=== PATIENT | female | born 1950 | race Caucasian/White ===

== ENCOUNTER 2016-09-11 18:25 | Inpatient (IN) | payer MEDICARE ==
[2016-09-11 18:36] VITALS: BMI 29.2
[2016-09-11] MEDS ORDERED: NS 1,000 ML IV ONE (18:56)
[2016-09-11 19:09] LABS: ABG Draw Site Right Brachial; ALLEN'S TEST PASS; BEb 2.3 (+/- 2); TCO2 27.7 MMOL/L (23-27)
--- NOTE | 2016-09-11 19:10 | DIRPT ---
CLINICAL DATA: Chest pain, productive cough. EXAM: PORTABLE CHEST 1 VIEW COMPARISON: June 20, 2015. FINDINGS: The heart size and mediastinal contours are within normal limits. Both lungs are clear. No pneumothorax or pleural effusion is noted. The visualized skeletal structures are unremarkable. IMPRESSION: No acute cardiopulmonary abnormality seen. Electronically Signed By: Reji Rosales Jr, M.D. On: 09/11/2016 19:08
[2016-09-11 19:13] LABS: AUTOMATED BASOPHIL 1.2 % (0-2); AUTOMATED EOSINOPHIL 4.7 % (0-5); AUTOMATED LYMPH 30.1 % (17-44); AUTOMATED MONOCYTE 8.1 % (3-10); AUTOMATED NEUTROPHIL 55.9 % (45-76); MPV 10.3 fL (7.4-10.4)
[2016-09-11 19:23] LABS: BLOOD UREA NITROGEN 24 MG/DL (7-17); CALCIUM 9.7 MG/DL (8.4-10.2); CALCULATED OSMOLALITY 277 MOs/Kg (270-290); CHLORIDE 105 mEq/L (98-107); GLUCOSE 93 mg/dL (70-99); SODIUM LEVEL 142 mEq/L (137-146); TOTAL PROTEIN 8.1 G/DL (6.3-8.2)
[2016-09-11 19:27] LABS: PARTIAL THROMB. TIME 22.9 SEC (22-35)
--- NOTE | 2016-09-11 19:38 | EDPRACDOC ---
- General Information Information Source: Patient Mode of Arrival: Car - History of Present Illness Onset: 1 WEEK HPI: PT PRESENTS WITH SUBSTERNAL CHEST PAIN THAT SHE STATES BEGAN SEVERAL DAYS AGO. STATES SHE HAS HAD A NON-PRODUCTIVE COUGH. DENIES RADIATION OF THE PAIN, NAUSEA , VOMITING, DIAPHORESIS OR SHOB. PT HAS NO PMH OF DIABETES, HTN, OR HYPERLIPIDEMIA. NO FAMILY CARDIAC HISTORY Chest Pain Location: Reports: Substernal Pain Radiation: Reports: None Symptoms Occur: Reports: Gradually Cardiac Risk Factors: Reports: None Cardiac History of: Reports: None PE Risk Factors: Reports: None Medications within 24 Hours: Reports: None Prehospital Care: Reports: None Pain Came On: Reports: Gradually Pain Status: Present Now Pain Description: Reports: Pressure, Tightness Pain Severity: Mild Pain Worsens With: Reports: Nothing Pain Improves With: Reports: Nothing Associated Signs and Symptoms: Reports: None <Christal Reeder - Last Filed: 09/11/16 21:33> <Celine Patel - Last Filed: 09/11/16 23:02> - General Information Chief Complaint: Chest Pain Stated Complaint: LOW HEART RATE CP SENT BY DOCTOR'S OFFICE Time Seen by Provider: 09/11/16 18:45 Home Medications: Home Medications Bimatoprost [Lumigan] 1 drop OU QHS 09/11/16 Brimonidine 0.2%/Timolol 0.5% [Combigan] 1 drops OU BID 09/11/16 Dorzolamide HCl [Trusopt] 1 drop OS QHS 09/11/16 Guaifenesin [Mucinex] 600 mg PO BID 09/11/16 Lansoprazole [Prevacid] 30 mg PO BID 09/11/16 Valacyclovir HCl [Valtrex] 500 mg PO DAILY PRN 09/11/16 Allergies/Adverse Reactions: Allergies Allergy/AdvReac Type Severity Reaction Status Date / Time levofloxacin [From Levaquin] Allergy Hives* Verified 09/11/16 18:36 Sulfa (Sulfonamide Allergy Unknown/See Verified 09/11/16 18:36 Antibiotics) Comments [Sulfa(Sulfonamide Antibiotics)] ED Past Medical History - History Reviewed Yes Nurses notes reviewed and agree except as marked - Patient Medical History Psychological History: Denies: Depression - Social Medical History Smoking Status: Former smoker <Christal Reedre - Last Filed: 09/11/16 21:33> EDM Review of Systems - Review of Systems ROS Negative Except as Marked: Yes All systems reviewed and were negative except as marked <Christal Reeder - Last Filed: 09/11/16 21:33> - Physical Exam Constitutional: Alert Oriented to: Time, Person, Place Last recorded Vital Signs: Last Vital Signs Temp 98.4 F 09/11/16 18:31 Pulse 52 L 09/11/16 19:08 Resp 18 09/11/16 18:50 BP 163/72 09/11/16 18:50 Pulse Ox 96 09/11/16 18:50 Oxygen Pulse Oxygen Saturation 96 O2 Device Oxygen Flow Rate Fraction of Inspired Oxygen ( FIO2) - HEENT Head: Normal ( normocephalic) Eye Exam: Normal (PERRL, EOMI, Sclera white) Oropharynx: Normal (Pharynx:Moist without exudate,Gums-no swelling) Tympanic Membrane: Normal Nose: No Symptoms Reported (septum midline) Neck: Normal (FROM, trachea at midline) - Respiratory/Cardiovascular Respiratory: Normal - CTA (BBS clear to auscultation without adventitious sounds ) Cardiovascular: Normal (RRR without murmur, gallop or rub) - GI Auscultation: Normal (NABS) Palpation: Normal (Soft,No rebound or guarding, non distended) Tenderness: Non tender Cooper's Sign: Negative Rectal Exam: Deferred - Musculoskeletal Back: Normal (Non-Tender) Extremities: Normal (Normal tone, Pulses 2+ No cyanosis or edema, FROM) - Integumentary Skin: Normal, Warm, Dry Lymphatics: Normal (no adenopathy) - Neurologic Memory Impaired: Normal Motor Function: Normal (Normal tone, Pulses 2+ No cyanosis or edema, FROM) Cranial Nerve: Normal (CN II-X11 intact sensation, strength 5/5) Cerebellar: Normal Mood Description: Normal Perception: Normal <Christal Reeder - Last Filed: 09/11/16 21:33> - Physical Exam Last recorded Vital Signs: Last Vital Signs Temp 98.4 F 09/11/16 18:31 Pulse 49 L 09/11/16 22:21 Resp 18 09/11/16 22:21 BP 151/65 09/11/16 22:21 Pulse Ox 95 09/11/16 22:21 Oxygen Pulse Oxygen Saturation 95 O2 Device Oxygen Flow Rate Fraction of Inspired Oxygen ( FIO2) <Celine Patel N - Last Filed: 09/11/16 23:02> ED Chest Pain Exam - Respiratory/Cardiovascular Respiratory: Normal - CTA Cardiovascular/Chest: Normal Radial Pulse: Normal Femoral Pulse: Normal Pedal Pulse: Normal Carotid Arteries: Normal Edema: negative: 1+, 2+, 3+, 4+, 5, 6 Chest Palpation: Normal <Christal Reeder - Last Filed: 09/11/16 21:33> - Differential Diagnosis Costochondritis, Pneumonia - Action Patient received Aspirin within last 24 hours?: No ASA given in the ED: No Patient received Beta Marcellus within last 24hrs: No - Re-evaluation Re-evaluation 1 Re-evaluation Time: 21:31 (PT STATING SHE IS HAVING A LITTLE MORE SUBSTERNAL CHEST PAIN. NOT HORRIBLE. CONTINUES TO DENY NAUSEA, VOMITING. DISCUSSED WITH DR PATEL, PT TO BE ADMITTED. ) - Results All Results Reviewed and Normal except as Highlighted below: Yes 09/11/16 19:01 09/11/16 19:01 WBC 7.8 xk/uL (3.8-10.8) 09/11/16 19:01 RBC 4.95 xM/uL (4.20-5.40) 09/11/16 19:01 Hgb 13.2 g/dL (12.0-16.0) 09/11/16 19:01 Hct 40.4 % (36-47) 09/11/16 19:01 MCV 82 fL (81-99) 09/11/16 19:01 MCH 26.7 pg (27-32) L 09/11/16 19:01 MCHC 32.7 g/dl (33-36) L 09/11/16 19:01 RDW 13.4 % (11.5-14.5) 09/11/16 19:01 Plt Count 206 xk/uL (130-400) 09/11/16 19:01 MPV 10.3 fL (7.4-10.4) 09/11/16 19:01 Neut % (Auto) 55.9 % (45-76) 09/11/16 19:01 Lymph % (Auto) 30.1 % (17-44) 09/11/16 19:01 [place] % (Auto) 8.1 % (3-10) 09/11/16 19:01 Eos % (Auto) 4.7 % (0-5) 09/11/16 19:01 Baso % (Auto) 1.2 % (0-2) 09/11/16 19:01 Absolute Neuts (auto) 4.29 xk/uL (1.7-8.2) 09/11/16 19:01 Absolute Lymphs (auto) 2.34 xk/uL (0.65-4.75) 09/11/16 19:01 Puncture Site Right brachial 09/11/16 19:05 pH 7.440 pH UNITS (7.35-7.45) 09/11/16 19:05 pCO2 39.0 mmHg (35-45) 09/11/16 19:05 pO2 65.0 mmHg (80-100) L 09/11/16 19:05 HCO3 26.5 MMOL/L (22-26) H 09/11/16 19:05 Total CO2 27.7 MMOL/L (23-27) H 09/11/16 19:05 Base Excess 2.3 (+/- 2) H 09/11/16 19:05 FiO2 % 21 09/11/16 19:05 Specimen Drawn By Kaytr 09/11/16 19:05 Sodium 142 mEq/L (137-146) 09/11/16 19:01 Potassium 3.8 mEq/L (3.5-5.1) 09/11/16 19:01 Chloride 105 mEq/L (98-107) 09/11/16 19:01 Carbon Dioxide 29 mMOL/L (22-33) 09/11/16 19:01 Anion Gap 12 mEq/L (8-16) 09/11/16 19:01 BUN 24 MG/DL (7-17) H 09/11/16 19:01 Creatinine 1.00 MG/DL (0.52-1.04) 09/11/16 19:01 Estimated GFR (MDRD) 55 mL/min (>=60) L 09/11/16 19:01 Glucose 93 mg/dL (70-99) 09/11/16 19:01 Calculated Osmolality 277 MOs/Kg (270-290) 09/11/16 19:01 Calcium 9.7 MG/DL (8.4-10.2) 09/11/16 19:01 Total Bilirubin 0.5 MG/DL (0.2-1.3) 09/11/16 19:01 AST 33 IU/L (14-36) 09/11/16 19:01 ALT 23 IU/L (9-52) 09/11/16 19:01 Alkaline Phosphatase 113 IU/L (55-165) 09/11/16 19:01 Total Protein 8.1 G/DL (6.3-8.2) 09/11/16 19:01 Albumin 4.3 G/DL (3.5-5.0) 09/11/16 19:01 Lab Results 09/11/16 09/11/16 09/11/16 19:05 19:01 19:01 WBC 7.8 RBC 4.95 Hgb 13.2 Hct 40.4 MCV 82 MCH 26.7 L MCHC 32.7 L RDW 13.4 Plt Count 206 MPV 10.3 Neut % (Auto) 55.9 Lymph % (Auto) 30.1 [place] % (Auto) 8.1 Eos % (Auto) 4.7 Baso % (Auto) 1.2 Absolute Neuts (auto) 4.29 Absolute Lymphs (auto) 2.34 Puncture Site Right brachial pH 7.440 pCO2 39.0 pO2 65.0 L HCO3 26.5 H Total CO2 27.7 H Base Excess 2.3 H FiO2 % 21 Specimen Drawn By Kaytr Sodium 142 Potassium 3.8 Chloride 105 Carbon Dioxide 29 Anion Gap 12 BUN 24 H Creatinine 1.00 Estimated GFR (MDRD) 55 L Glucose 93 Calculated Osmolality 277 Calcium 9.7 Total Bilirubin 0.5 AST 33 ALT 23 Alkaline Phosphatase 113 Total Protein 8.1 Albumin 4.3 Laboratory Results - last 24 hr 09/11/16 09/11/16 09/11/16 19:01 19:01 19:05 WBC 7.8 RBC 4.95 Hgb 13.2 Hct 40.4 MCV 82 MCH 26.7 L MCHC 32.7 L RDW 13.4 Plt Count 206 MPV 10.3 Neut % (Auto) 55.9 Lymph % (Auto) 30.1 [place] % (Auto) 8.1 Eos % (Auto) 4.7 Baso % (Auto) 1.2 Absolute Neuts (auto) 4.29 Absolute Lymphs (auto) 2.34 Puncture Site Right brachial pH 7.440 pCO2 39.0 pO2 65.0 L HCO3 26.5 H Total CO2 27.7 H Base Excess 2.3 H FiO2 % 21 Specimen Drawn By Kaytr Sodium 142 Potassium 3.8 Chloride 105 Carbon Dioxide 29 Anion Gap 12 BUN 24 H Creatinine 1.00 Estimated GFR (MDRD) 55 L Glucose 93 Calculated Osmolality 277 Calcium 9.7 Total Bilirubin 0.5 AST 33 ALT 23 Alkaline Phosphatase 113 Total Protein 8.1 Albumin 4.3 Laboratory Results 09/11/16 19:01 09/11/16 19:01 - EKG EKG #1 EKG Time: 18:41 -: Yes EKG interpreted by me Rate: bpm: 51 [place]: Normal Rhythm: SB Block: None Hypertrophy: None ST: Normal EKG #2 EKG Time: 21:29 -: Yes EKG interpreted by me Rate: bpm: 63 [place]: Normal Rhythm: NSR Block: None Hypertrophy: None ST: Normal <Christal Reeder - Last Filed: 09/11/16 21:33> - Results 09/11/16 19:01 09/11/16 19:01 WBC 7.8 xk/uL (3.8-10.8) 09/11/16 19:01 RBC 4.95 xM/uL (4.20-5.40) 09/11/16 19:01 Hgb 13.2 g/dL (12.0-16.0) 09/11/16 19:01 Hct 40.4 % (36-47) 09/11/16 19:01 MCV 82 fL (81-99) 09/11/16 19:01 MCH 26.7 pg (27-32) L 09/11/16 19:01 MCHC 32.7 g/dl (33-36) L 09/11/16 19:01 RDW 13.4 % (11.5-14.5) 09/11/16 19:01 Plt Count 206 xk/uL (130-400) 09/11/16 19:01 MPV 10.3 fL (7.4-10.4) 09/11/16 19:01 Neut % (Auto) 55.9 % (45-76) 09/11/16 19:01 Lymph % (Auto) 30.1 % (17-44) 09/11/16 19:01 [place] % (Auto) 8.1 % (3-10) 09/11/16 19:01 Eos % (Auto) 4.7 % (0-5) 09/11/16 19:01 Baso % (Auto) 1.2 % (0-2) 09/11/16 19:01 Absolute Neuts (auto) 4.29 xk/uL (1.7-8.2) 09/11/16 19:01 Absolute Lymphs (auto) 2.34 xk/uL (0.65-4.75) 09/11/16 19:01 PT 10.7 SEC (9.2-11.2) 09/11/16 19: INR 1.0 09/11/16 19:01 APTT 22.9 SEC (22-35) 09/11/16 19:01 D-Dimer Quant (PE/DVT) 549 ng/mL (<500) H 09/11/16 19:01 Puncture Site Right brachial 09/11/16 19:05 pH 7.440 pH UNITS (7.35-7.45) 09/11/16 19:05 pCO2 39.0 mmHg (35-45) 09/11/16 19:05 pO2 65.0 mmHg (80-100) L 09/11/16 19:05 HCO3 26.5 MMOL/L (22-26) H 09/11/16 19:05 Total CO2 27.7 MMOL/L (23-27) H 09/11/16 19:05 Base Excess 2.3 (+/- 2) H 09/11/16 19:05 FiO2 % 21 09/11/16 19:05 Specimen Drawn By Kaytr 09/11/16 19:05 Sodium 142 mEq/L (137-146) 09/11/16 19:01 Potassium 3.8 mEq/L (3.5-5.1) 09/11/16 19:01 Chloride 105 mEq/L (98-107) 09/11/16 19:01 Carbon Dioxide 29 mMOL/L (22-33) 09/11/16 19:01 Anion Gap 12 mEq/L (8-16) 09/11/16 19:01 BUN 24 MG/DL (7-17) H 09/11/16 19:01 Creatinine 1.00 MG/DL (0.52-1.04) 09/11/16 19:01 Estimated GFR (MDRD) 55 mL/min (>=60) L 09/11/16 19:01 Glucose 93 mg/dL (70-99) 09/11/16 19:01 Calculated Osmolality 277 MOs/Kg (270-290) 09/11/16 19:01 Calcium 9.7 MG/DL (8.4-10.2) 09/11/16 19:01 Total Bilirubin 0.5 MG/DL (0.2-1.3) 09/11/16 19:01 AST 33 IU/L (14-36) 09/11/16 19:01 ALT 23 IU/L (9-52) 09/11/16 19:01 Alkaline Phosphatase 113 IU/L (55-165) 09/11/16 19:01 Troponin I < 0.01 ng/mL (<.04) 09/11/16 19:01 Rpc-A-Bcaiaxecqvt Pept 59 pg/mL (0-900) 09/11/16 19:01 Total Protein 8.1 G/DL (6.3-8.2) 09/11/16 19:01 Albumin 4.3 G/DL (3.5-5.0) 09/11/16 19:01 Lab Results 09/11/16 09/11/16 09/11/16 19:05 19:01 19:01 WBC RBC Hgb Hct MCV MCH MCHC RDW Plt Count MPV Neut % (Auto) Lymph % (Auto) [place] % (Auto) Eos % (Auto) Baso % (Auto) Absolute Neuts (auto) Absolute Lymphs (auto) PT 10.7 INR 1.0 APTT 22.9 D-Dimer Quant (PE/DVT) 549 H Puncture Site Right brachial pH 7.440 pCO2 39.0 pO2 65.0 L HCO3 26.5 H Total CO2 27.7 H Base Excess 2.3 H FiO2 % 21 Specimen Drawn By Kaytr Sodium Potassium Chloride Carbon Dioxide Anion Gap BUN Creatinine Estimated GFR (MDRD) Glucose Calculated Osmolality Calcium Total Bilirubin AST ALT Alkaline Phosphatase Troponin I Qgp-K-Qxliofyxyge Pept Total Protein Albumin 09/11/16 09/11/16 19:01 19:01 WBC 7.8 RBC 4.95 Hgb 13.2 Hct 40.4 MCV 82 MCH 26.7 L MCHC 32.7 L RDW 13.4 Plt Count 206 MPV 10.3 Neut % (Auto) 55.9 Lymph % (Auto) 30.1 [place] % (Auto) 8.1 Eos % (Auto) 4.7 Baso % (Auto) 1.2 Absolute Neuts (auto) 4.29 Absolute Lymphs (auto) 2.34 PT INR APTT D-Dimer Quant (PE/DVT) Puncture Site pH pCO2 pO2 HCO3 Total CO2 Base Excess FiO2 % Specimen Drawn By Sodium 142 Potassium 3.8 Chloride 105 Carbon Dioxide 29 Anion Gap 12 BUN 24 H Creatinine 1.00 Estimated GFR (MDRD) 55 L Glucose 93 Calculated Osmolality 277 Calcium 9.7 Total Bilirubin 0.5 AST 33 ALT 23 Alkaline Phosphatase 113 Troponin I < 0.01 Gsi-Z-Eiphnufwyzo Pept 59 Total Protein 8.1 Albumin 4.3 Laboratory Results - last 24 hr 09/11/16 09/11/16 09/11/16 19:01 19:01 19:01 WBC 7.8 RBC 4.95 Hgb 13.2 Hct 40.4 MCV 82 MCH 26.7 L MCHC 32.7 L RDW 13.4 Plt Count 206 MPV 10.3 Neut % (Auto) 55.9 Lymph % (Auto) 30.1 [place] % (Auto) 8.1 Eos % (Auto) 4.7 Baso % (Auto) 1.2 Absolute Neuts (auto) 4.29 Absolute Lymphs (auto) 2.34 PT 10.7 INR 1.0 APTT 22.9 D-Dimer Quant (PE/DVT) Puncture Site pH pCO2 pO2 HCO3 Total CO2 Base Excess FiO2 % Specimen Drawn By Sodium 142 Potassium 3.8 Chloride 105 Carbon Dioxide 29 Anion Gap 12 BUN 24 H Creatinine 1.00 Estimated GFR (MDRD) 55 L Glucose 93 Calculated Osmolality 277 Calcium 9.7 Total Bilirubin 0.5 AST 33 ALT 23 Alkaline Phosphatase 113 Troponin I < 0.01 Dep-P-Uhvsqekxhgm Pept 59 Total Protein 8.1 Albumin 4.3 09/11/16 09/11/16 19:01 19:05 WBC RBC Hgb Hct MCV MCH MCHC RDW Plt Count MPV Neut % (Auto) Lymph % (Auto) [place] % (Auto) Eos % (Auto) Baso % (Auto) Absolute Neuts (auto) Absolute Lymphs (auto) PT INR APTT D-Dimer Quant (PE/DVT) 549 H Puncture Site Right brachial pH 7.440 pCO2 39.0 pO2 65.0 L HCO3 26.5 H Total CO2 27.7 H Base Excess 2.3 H FiO2 % 21 Specimen Drawn By Kaytr Sodium Potassium Chloride Carbon Dioxide Anion Gap BUN Creatinine Estimated GFR (MDRD) Glucose Calculated Osmolality Calcium Total Bilirubin AST ALT Alkaline Phosphatase Troponin I Rsb-R-Ihzdpaaycuq Pept Total Protein Albumin Laboratory Results 09/11/16 19:01 09/11/16 19:01 - Additional Information COMPONENT OF DYSPNEA ON EXERTION / CP WITH EXERTION OVER THE PAST WEEK. WHILE CARDIAC RISK FACTORS ARE LOW, EKG AND TROPS WNL, THE HISTORY IS CONCERNING. <Celine Patel - Last Filed: 09/11/16 23:02> - Departure Disposition: Admit IP To This Hospital Education/Counseling Given To: Patient Education/Counseling Given Regarding: Diagnosis, Treatment, Prognosis, Follow Up <Christal Reeder - Last Filed: 09/11/16 21:33> - Physician Consulted Hospitalist Time Called: 22:47 Provider Called: iKel Rangel <Celine Patel - Last Filed: 09/11/16 23:02> - Departure Condition: Stable Final Diagnosis: ACS (acute coronary syndrome) Chest pain Qualifiers: Chest pain type: unspecified Qualified Code(s): R07.9 - Chest pain, unspecified Instructions: Chest Pain (ED), Chest Wall Pain (ED) Referrals: Wanda Everett MD [Primary Care Provider] - One Week Prescriptions: No Action Guaifenesin [Mucinex] 600 mg PO BID Dorzolamide HCl [Trusopt] 1 drop OS QHS Brimonidine 0.2%/Timolol 0.5% [Combigan] 1 drops OU BID Valacyclovir HCl [Valtrex] 500 mg PO DAILY PRN PRN Reason: FEVER BLISTER Lansoprazole [Prevacid] 30 mg PO BID Bimatoprost [Lumigan] 1 drop OU QHS
[2016-09-11] MEDS ORDERED: Pharmacy Review for Metformin - IV Contrast Given SCH (21:00)
--- NOTE | 2016-09-11 21:17 | DIRPT ---
CLINICAL DATA: Chest pain and cough for 1 week. Elevated D-dimer. Bradycardia. EXAM: CT ANGIOGRAPHY CHEST WITH CONTRAST TECHNIQUE: Multidetector CT imaging of the chest was performed using the standard protocol during bolus administration of intravenous contrast. Multiplanar CT image reconstructions and MIPs were obtained to evaluate the vascular anatomy. CONTRAST: 70 mL Isovue 370 IV COMPARISON: Chest radiograph earlier this day. Chest CT 07/22/2012 FINDINGS: There are no filling defects within the pulmonary arteries to suggest pulmonary embolus. Normal caliber thoracic aorta with minimal atherosclerosis. No aneurysm or dissection. Left vertebral artery arises directly from the aortic arch, a normal variant. Heart is normal in size. No mediastinal or hilar adenopathy. A 2 cm ovoid simple fluid density structure in the right infrahilar region is unchanged from prior exam, benign based on stability for 4 years. Clear lungs. No consolidation, nodule or mass. No pulmonary edema. Minimal fissural thickening involving the interlobar fissure on the left. No acute abnormality in the included upper abdomen. There are no acute or suspicious osseous abnormalities. Review of the MIP images confirms the above findings. IMPRESSION: No pulmonary embolus or acute intrathoracic process. Electronically Signed By: Naida Gibbs M.D. On: 09/11/2016 21:15
[2016-09-11] MEDS ORDERED: Enoxaparin 1 mg per kg per dose SQ ONE (21:25)
[2016-09-11] MEDS ORDERED: ASPIRIN 325 MG TAB PO ONE (21:25)
[2016-09-11] MEDS ORDERED: ENOXAPARIN 80 MG/0.8 ML PFS SQ ONE (22:00)
[2016-09-11] MEDS ORDERED: NITROGLYCERINE 0.4 MG TAB SL PRN (23:54)
--- NOTE | 2016-09-11 23:54 | HISTPHYS ---
- Chief Complaint chest pain - History of Present Illness PRIMARY CARE PROVIDER: Dr. Everett HPI: The patient is a 66 yo woman who presents with not feeling well and having chest pain. . She has had a cold and coughing and drainage over the last 2 weeks. She had chest pain intermittently over the last 2 weeks, but started to get worse yesterday. She went to urgent care and had an EKG done, that showed a heart rate of 47; she had several other measurements in the 40s, including 44 and 49 bpm. Onset: 2 weeks ago but worse starting yesterday. Duration: intermittent. Location: Substernal. Left chest. Radiation: Sometimes to right chest and axillae. Character: 9/10 at times. Pressure and burning. Alleviated by: Nothing. Exacerbated by: Walking and especially with going uphill. Associated Symptoms: Cough x years but worse than usual. Mild shortness of breath. No wheezing. Chest pain but no palpitations. Diaphoresis. Treatments: none at home except usual medications. Her had a cold. Had bronchitis in June - July 2016. Patient requests that if she needs to see a senior planning manager, she requests Dr. Hinton, who is her 's doctor. PMH: Glaucoma Chronic cough thought due to allergic rhinitis. GERD No history of hypertension, hyperlipidemia, diabetes. Minimal smoking history, and has quit. Family History: MGF with ME. - Medical History Respiratory History: Reports: Other GI/ History: Reports: Gastroesophageal Reflux Psychological History: Denies: Depression PMH: Glaucoma Chronic cough thought due to allergic rhinitis. GERD - Surgical History Reports: Other (Bilateral knees. "Tummy tuck") - Medictions/Allergies Allergies levofloxacin [From Levaquin] Allergy (Verified 09/11/16 18:36) Hives* Sulfa (Sulfonamide Antibiotics) [Sulfa(Sulfonamide Antibiotics)] Allergy ( Verified 09/11/16 18:36) Unknown/See Comments Current Medication List: Reviewed Home Medications Bimatoprost [Lumigan] 1 drop OU QHS 09/11/16 Brimonidine 0.2%/Timolol 0.5% [Combigan] 1 drops OU BID 09/11/16 Dorzolamide HCl [Trusopt] 1 drop OS QHS 09/11/16 Guaifenesin [Mucinex] 600 mg PO BID 09/11/16 Lansoprazole [Prevacid] 30 mg PO BID 09/11/16 Valacyclovir HCl [Valtrex] 500 mg PO DAILY PRN 09/11/16 - Family History Reports: Diabetes (Maternal aunts, uncles.), Cardiac Disorders (MGF: ME.), Other (Mother: at 95yo. Father: DVT, PE, alcholism.) - Social History Smoking Status: Former smoker (Quit in 1980, but only smoked total of 3 years, 1 ppd. 3 pack-year history.) Social History: Reports: Alcohol Use (Socially. Up to 4 times per week but not every week; usually 1 glass of win). Denies: Substance Use Disorder - Review of Systems GENERAL: No Fever, chills. Diaphoresis. Positive for fatigue/malaise. HEENT: No ear pain or discharge. Has nasal discharge but no bleeding. Hsa throat pain but no swelling. No eye pain or eye redness. RESPIRATORY: Cough x years but worse than usual. Mild shortness of breath. No wheezing. CARDIOVASCULAR: Chest pain. No palpitations. GI: No abdominal pain, nausea, vomiting, diarrhea, constipation, or bloody stool. NEUROLOGICAL: No headache or focal weakness. INTEGUMENT: no rashes, itching, or lesions. LYMPHATIC SYSTEM: no lymph node swelling or pain. MUSCULOSKELETAL: no pain or joint swelling. GENITOURINARY: No dysuria or hematuria. ENDOCRINE: No polyuria or polydipsia. Stays thirsty. HEME: No chronic anemia, bleeding, or easy bruising. - Physical Exam Vital Signs: Initial Vitals Temperature 98.4 F 09/11/16 18:31 Pulse Rate 79 09/11/16 18:31 Respiratory Rate 20 09/11/16 18:31 Blood Pressure 148/83 09/11/16 18:31 Pulse Oxygen Saturation 97 09/11/16 18:31 Vital Signs - 24 hr 09/11/16 09/11/16 09/11/16 18:31 18:50 19:08 Temperature 98.4 F Pulse Rate 79 67 52 L Respiratory 20 18 Rate Blood Pressure 148/83 163/72 Pulse Oxygen 97 96 Saturation 09/11/16 09/11/16 09/11/16 19:52 20:25 20:50 Temperature Pulse Rate 48 L 58 L 56 L Respiratory 18 18 18 Rate Blood Pressure 165/71 152/70 164/72 Pulse Oxygen 98 96 98 Saturation 09/11/16 09/11/16 09/11/16 21:21 21:51 22:21 Temperature Pulse Rate 51 L 50 L 49 L Respiratory 18 18 18 Rate Blood Pressure 141/65 155/72 151/65 Pulse Oxygen 96 94 95 Saturation Weight: 74.5 kg Height: 5'3" BMI: 29.1 - Other Exam Other Exam Findings: GENERAL: Ill-appearing, well nourished, no acute distress. HEENT: Normocephalic, atraumatic; pupils equal and round. Nares patent, without discharge or bleeding. No oropharyngeal lesions or erythema. Mucous membranes are dry. NECK: is supple, no masses, trachea midline. RESPIRATORY: Clear to auscultation bilaterally. Chest wall movements are symmetric. No use of accessory muscles to breathe. No tachypnea. No wheezing, rales, rhonchi. CARDIOVASCULAR: Normal S1, S2. Minimal 2/6 systolic flow murmur heard intermittently. No rubs, or gallops. PMI non-displaced. Carotids: no carotid bruits. Marked bradycardia. DP pulses 2+ bilaterally. GI: soft, nontender, non-distended, normal active bowel sounds. No hepatosplenomegaly. INTEGUMENT: Clean, dry, and intact. No rashes. No lesions. MUSCULOSKELETAL: Moving all extremities. No cyanosis. No clubbing. Edema: trace to 1+ lower extremity edema bilaterally. NEUROLOGICAL: Cranial nerves 2-12 grossly intact. Motor 5/5 throughout. Reflexes : 2+ bilaterally. Babinski: toes downgoing bilaterally. Intact Finger to nose. Sensory grossly intact to light touch. Intact rapid alternating movements bilaterally. No pronator drift. PSYCHIATRIC: Fully oriented. Normal and appropriate affect. LYMPHATIC: No cervical lymphadenopathy. No supraclavicular lymphadenopathy. - Lab Results Laboratory Results - last 24 hr 09/11/16 09/11/16 09/11/16 19:01 19:01 19:01 WBC 7.8 RBC 4.95 Hgb 13.2 Hct 40.4 MCV 82 MCH 26.7 L MCHC 32.7 L RDW 13.4 Plt Count 206 MPV 10.3 Neut % (Auto) 55.9 Lymph % (Auto) 30.1 Bosque % (Auto) 8.1 Eos % (Auto) 4.7 Baso % (Auto) 1.2 Absolute Neuts (auto) 4.29 Absolute Lymphs (auto) 2.34 PT 10.7 INR 1.0 APTT 22.9 D-Dimer Quant (PE/DVT) Puncture Site pH pCO2 pO2 HCO3 Total CO2 Base Excess FiO2 % Specimen Drawn By Sodium 142 Potassium 3.8 Chloride 105 Carbon Dioxide 29 Anion Gap 12 BUN 24 H Creatinine 1.00 Estimated GFR (MDRD) 55 L Glucose 93 Calculated Osmolality 277 Calcium 9.7 Total Bilirubin 0.5 AST 33 ALT 23 Alkaline Phosphatase 113 Troponin I < 0.01 Itk-O-Snuiidovbvg Pept 59 Total Protein 8.1 Albumin 4.3 09/11/16 09/11/16 09/11/16 19:01 19:05 22:43 WBC RBC Hgb Hct MCV MCH MCHC RDW Plt Count MPV Neut % (Auto) Lymph % (Auto) Bosque % (Auto) Eos % (Auto) Baso % (Auto) Absolute Neuts (auto) Absolute Lymphs (auto) PT INR APTT D-Dimer Quant (PE/DVT) 549 H Puncture Site Right brachial pH 7.440 pCO2 39.0 pO2 65.0 L HCO3 26.5 H Total CO2 27.7 H Base Excess 2.3 H FiO2 % 21 Specimen Drawn By Kaytr Sodium Potassium Chloride Carbon Dioxide Anion Gap BUN Creatinine Estimated GFR (MDRD) Glucose Calculated Osmolality Calcium Total Bilirubin AST ALT Alkaline Phosphatase Troponin I < 0.01 [id number] Pept Total Protein Albumin - Diagnostic Findings EKG #1, at Urgent Care: 47 bpm. Sinus bradycardia. Nonspecific ST-T changes. T wave inversion in leads V2 and V3. Flat T in V4. Reviewed EKG personally. EKG #2, at hospital: 51 bpm. Sinus bradycardia. Flat T wave in V2, V3, and V4. Reviewed EKG personally. EKG #3, at hospital: 63 bpm. Normal sinus rhythm. Low voltage QRS. Flat T wave in V2, V3. Reviewed EKG personally. Chest x-ray, viewed personally: EXAM: PORTABLE CHEST 1 VIEW COMPARISON: June 20, 2015. FINDINGS: The heart size and mediastinal contours are within normal limits. Both lungs are clear. No pneumothorax or pleural effusion is noted. The visualized skeletal structures are unremarkable. IMPRESSION: No acute cardiopulmonary abnormality seen. CTA Chest: EXAM: CT ANGIOGRAPHY CHEST WITH CONTRAST TECHNIQUE: Multidetector CT imaging of the chest was performed using the standard protocol during bolus administration of intravenous contrast. Multiplanar CT image reconstructions and MIPs were obtained to evaluate the vascular anatomy. CONTRAST: 70 mL Isovue 370 IV COMPARISON: Chest radiograph earlier this day. Chest CT 07/22/2012 FINDINGS: There are no filling defects within the pulmonary arteries to suggest pulmonary embolus. Normal caliber thoracic aorta with minimal atherosclerosis. No aneurysm or dissection. Left vertebral artery arises directly from the aortic arch, a normal variant. Heart is normal in size. No mediastinal or hilar adenopathy. A 2 cm ovoid simple fluid density structure in the right infrahilar region is unchanged from prior exam, benign based on stability for 4 years. Clear lungs. No consolidation, nodule or mass. No pulmonary edema. Minimal fissural thickening involving the interlobar fissure on the left. No acute abnormality in the included upper abdomen. There are no acute or suspicious osseous abnormalities. Review of the MIP images confirms the above findings. IMPRESSION: No pulmonary embolus or acute intrathoracic process. - Assessment (1) Chest pain R07.9 - CHEST PAIN, UNSPECIFIED Acute Present on Admission: Yes Qualifiers: Chest pain type: unspecified Qualified Code(s): R07.9 - Chest pain, unspecified Rule out myocardial infarction. Plan: Obtain cardiac enzymes x 3. Place patient on telemetry. Give patient oxygen, aspirin. Give nitroglycerin, and morphine as needed for chest pain. Give statin. Stress test has been ordered for the morning. Patient has been advised, if the stress test is negative, to follow up with the primary care provider for evaluation of other potential causes of the chest pain. No beta angelina due to bradycardia. (2) Bradycardia R00.1 - BRADYCARDIA, UNSPECIFIED Acute Present on Admission: Yes EKG from urgent care showed heart rate of 47. Heart rate in emergency department in the 45-55 range. No history of bradycardia. Plan: Echocardiogram. Telemetry. (3) Hypoxemia R09.02 - HYPOXEMIA Acute Present on Admission: Yes Plan: O2 by SD prn. (4) Elevated blood pressure reading R03.0 - ELEVATED BLOOD-PRESSURE READING, W/O DIAGNOSIS OF HTN Acute Present on Admission: Yes Will give patient lisinopril while ruling out ME. Recheck blood pressures at primary care office. Case Care Discussed with: Patient, Nursing Staff Total Time: 55 min
[2016-09-12] MEDS ORDERED: MORPHINE 2 MG/ML INJECTION IV PRN ×2 (00:30→00:32)
[2016-09-12] MEDS ORDERED: BIMATOPROST OU SCH (00:30)
[2016-09-12] MEDS: GUAIFENESIN 600 MG LA TAB PO SCH ×2 (00:57→12:02)
[2016-09-12] MEDS: Combigan Ophthalmic Soln 5 ml bottle OU SCH ×2 (00:58→12:01)
[2016-09-12] MEDS ORDERED: BIMATOPROST 0.01% OU SCH ×2 (01:00→21:00)
[2016-09-12] MEDS ORDERED: DORZOLAMIDE 2% OS SCH ×2 (01:00)
[2016-09-12] MEDS ORDERED: Combigan Ophthalmic Soln 5 ml bottle OU SCH (01:00)
[2016-09-12] MEDS ORDERED: ATORVASTATIN 40 MG TAB PO SCH (01:00)
[2016-09-12] MEDS ORDERED: PANTOPRAZOLE 40 MG TAB PO ONE (01:00)
[2016-09-12] MEDS ORDERED: GUAIFEN 100 MG-DEXTROMETH 10 MG PER 5 ML PO PRN (01:46)
[2016-09-12] MEDS ORDERED: Docusate Sodium 100 MG CAP PO PRN (01:46)
[2016-09-12] MEDS ORDERED: SIMETHICONE 80 MG TAB PO PRN (01:46)
[2016-09-12] MEDS ORDERED: TEMAZEPAM 15 MG CAP PO PRN (01:46)
[2016-09-12] MEDS ORDERED: ACETAMINOPHEN 325 MG/TAB TABLET PO PRN (01:46)
[2016-09-12] MEDS ORDERED: BENZONATATE 100 MG PERLES PO PRN (01:46)
[2016-09-12] MEDS ORDERED: PROMETHAZINE 25 MG/ML VIAL IV PRN (01:46)
[2016-09-12] MEDS ORDERED: BISACODYL 5 MG TAB PO PRN (01:46)
[2016-09-12] MEDS ORDERED: ONDANSETRON HCL 4 MG/2 ML VIAL IV PRN (01:46)
[2016-09-12] MEDS ORDERED: ACETAMINOPHEN 325 MG SUPP PR PRN (01:46)
[2016-09-12] MEDS ORDERED: SENNA CONCENTRATE TAB PO PRN (01:46)
[2016-09-12] MEDS ORDERED: Vaccine Screening Complete SCH (02:00)
[2016-09-12 02:49] LABS: MPV 10.3 fL (7.4-10.4)
[2016-09-12 02:59] LABS: BLOOD UREA NITROGEN 19 MG/DL (7-17); CALCIUM 8.9 MG/DL (8.4-10.2); CALCULATED OSMOLALITY 271 MOs/Kg (270-290); CHLORIDE 106 mEq/L (98-107); GLUCOSE 99 mg/dL (70-99); SODIUM LEVEL 140 mEq/L (137-146)
[2016-09-12] MEDS ORDERED: Pharmacy Order Set Alert SCH (03:00)
[2016-09-12] MEDS: PANTOPRAZOLE 40 MG TAB PO SCH ×2 (03:36→12:02)
[2016-09-12 03:57] LABS: LDL (calc.) 118.2 MG/DL (<100); VLDL (calc.) 30.8 MG/DL (5-40)
[2016-09-12] MEDS ORDERED: ASPIRIN 325 MG TAB PO SCH (08:00)
[2016-09-12] MEDS ORDERED: REGADENOSON 0.4 MG/5 ML SYRINGE IV ONE (09:00)
[2016-09-12] MEDS ORDERED: SODIUM CHLORIDE 0.9% 10 ML FLUSH FLUSH ONE (09:00)
[2016-09-12] MEDS ORDERED: SESTAMIBI 8 MCI V IV ONE (10:02)
--- NOTE | 2016-09-12 10:09 | PCM.CARDCO ---
Consultation Date: 09/12/16 Requesting Physician: Kiel Rangel (chest pain, bradycardia) Consulting Doctor: Josesito Thompson Travel Outside of [place] in the Last 3 Months?: No Consultation Note: History of Present Illness: 66 yo WF with hx of reflux but no cardiac hx, on proton pump inhibitors but no other meds. Admitted after seen in urgent care for chest pains, found to be bradycardic and sent over. Pt donated blood a month ago, and had an isolated syncopal episode soon after. Had eaten chili that day, had episode of severe substernal burning. Ever since , she has had more frequent episodes of substernal burning discomfort, no radiation to neck, jaw arms or back. No clear precipitating or alleviating factors, not specifically associated with exertion. (can occur while walking, also while resting). NO unusual SOB, orthopnea, PND, palpitations. Coronary risk factors all negative. Traditionally physically active. Past Medical History: reflux only. No HBP, DM, or dyslipidemia Allergies levofloxacin [From Levaquin] Allergy (Verified 09/11/16 18:36) Hives* Sulfa (Sulfonamide Antibiotics) [Sulfa(Sulfonamide Antibiotics)] Allergy ( Verified 09/11/16 18:36) Unknown/See Comments Home Medications Bimatoprost [Lumigan] 1 drop OU QHS 09/11/16 Brimonidine 0.2%/Timolol 0.5% [Combigan] 1 drops OU BID 09/11/16 Dorzolamide HCl [Trusopt] 1 drop OS QHS 09/11/16 Guaifenesin [Mucinex] 600 mg PO BID 09/11/16 Lansoprazole [Prevacid] 30 mg PO BID 09/11/16 Valacyclovir HCl [Valtrex] 500 mg PO DAILY PRN 09/11/16 Family History: Father of PE, heavy alcohol use. Mother in 90s. One brother of HIV. Social History: Traveled outside the [place] in the last 3 months? No Former smoker quit 1980 Review of Systems: 10-system otherwise negative. Specifically, no melena, TIA/CVA, or claudication Physical Examination: Temperature: 97.5 F (09/12/16 08:00)HR: 50 (09/12/16 08:00)RR: 18 (09/12/16 08: 00)BP: 127/64 (09/12/16 08:00) SAT:94 (09/12/16 08:00) [] Physical Exam GEN: WDWN, in NAD. VS: as above HEENT: neck veins flat, carotids normal, no bruit CHEST: clear COR: RR, normal s1, s2 no s3 Gr 1/6 DIEGO ABD: soft, no organomegaly or mass EXTREM: rad, PT 2+ bilat, non edema SKIN: warm, dry, no xanthomas NEURO: alert, no focal motor deficit or tremor; speech, gait normal LAB/DI: [] Laboratory Tests 09/11/16 09/11/16 09/11/16 19:01 19:01 19:01 WBC Hgb Hct MCV Plt Count INR 1.0 D-Dimer Quant (PE/DVT) 549 H pH pCO2 pO2 HCO3 FiO2 % Sodium 142 Potassium 3.8 Chloride 105 Carbon Dioxide 29 BUN 24 H Creatinine 1.00 Estimated GFR (MDRD) 55 L Total Bilirubin 0.5 AST 33 ALT 23 Alkaline Phosphatase 113 Troponin I < 0.01 Triglycerides Cholesterol LDL Cholesterol, Calc HDL Cholesterol 09/11/16 09/11/16 09/12/16 19:05 22:43 02:06 WBC Hgb Hct MCV Plt Count INR D-Dimer Quant (PE/DVT) pH 7.440 pCO2 39.0 pO2 65.0 L HCO3 26.5 H FiO2 % 21 Sodium Potassium Chloride Carbon Dioxide BUN Creatinine Estimated GFR (MDRD) Total Bilirubin AST ALT Alkaline Phosphatase Troponin I < 0.01 < 0.01 Triglycerides Cholesterol LDL Cholesterol, Calc HDL Cholesterol 09/12/16 09/12/16 02:06 02:06 WBC 6.6 Hgb 11.8 L D Hct 36.1 MCV 82 Plt Count 176 INR D-Dimer Quant (PE/DVT) pH pCO2 pO2 HCO3 FiO2 % Sodium Potassium Chloride Carbon Dioxide BUN Creatinine Estimated GFR (MDRD) Total Bilirubin AST ALT Alkaline Phosphatase Troponin I Triglycerides 154 H Cholesterol 190 LDL Cholesterol, Calc 118.2 H HDL Cholesterol 41.0 EKGs (UC/ER): sinus bradycardia 40s, otherwise normal tracings tele overnight; sinus lowest HR 40s, no long pauses, no ventricular arrhythmia CHest CT: neg for PE or intrathoracic process. Minimal atherosclerotic change in aorta. Cor normal. TM perf stress: normal HR response to exercise, reached target HR, no chest pain or ST-T changes IMPRESSION: (1) bradycardia does not appear clinically significant - possible early sinus node dysfunction or increased vagal tone Clearly no indication for cardiac pacing (2) chest pain is non-cardiac, probably secondary to reflux - Recommendations REC: anticipate discharge, f/u Dr Everett for reflux/ non-cardiac CP No further Cardiology eval or specific rx required at this time. Cardiology f/u prn - pt instructed to report new sx of lightheadedness or near-syncope at any time
--- NOTE | 2016-09-12 11:10 | CAPUECHO ---
INDICATION: BRADYCARDIA HEIGHT: 160.0 cm (5 ft 3.0 in) WEIGHT: 74.8 kg (165.0 lbs) BP: 127/64 BSA: 1.7814 m MEASUREMENTS 2D RVIDd: 2.8 cm LVOT Diam: 1.9 cm EF Biplane: 64.01 % LAESV MOD A4C: 47.6 ml LAESV MOD A2C: 38.2 ml LAESV Index (A-L): 26.68 ml/m M-MODE IVSd: 1.1 cm LVIDd: 4.7 cm LVPWd: 0.8 cm LVIDs: 3.2 cm EF(Teich): 62 % Ao Diam: 3.2 cm LA Diam: 3.9 cm DOPPLER MV E Juan: 0.85 m/s MV A Juan: 0.48 m/s MV PHT: 66.31 ms MVA By PHT: 3.32 cm LVOT Vmax: 1.26 m/s AV Vmax: 1.50 m/s ONEAL Vmax, Pt: 2.36 cm TR Vmax: 2.22 m/s TR maxP mmHg RVSP: 30.68 mmHg FINDINGS ------- Procedure:2D images, m-mode, color and spectral Doppler were obtained and reviewed. ECG rhythm:Resting bradycardia (HR<60bpm). Study quality:This was a technically good study. Left Ventricle:The left ventricular cavity size and wall thickeness are normal. Contractility good throughout, an EF between 60 - 65 %. The diastolic filling pattern indicates impaired relaxat ion. Right Ventricle:The right ventricle is normal in size and function. Left Atrium:The left atrium is normal in size. Right Atrium:The right atrium is normal in size and function. Septum normal Aortic Valve:The aortic valve is trileaflet and appears structurally normal. No stenosis or regurgi tation. Mitral Valve:Normal appearing mitral valve. There is trace mitral regurgitation. Tricuspid Valve:The tricuspid valve appears structurally normal. Trace to mild tricuspid regurgita tion present. The right ventricular systolic pressure, as measured by Doppler, is 31mmHg. Pulmonic Valve:The pulmonic valve is normal. There is no pulmonic regurgitation present. Aorta:The aortic root, ascending aorta and aortic arch appear normal. IVC:Normal inferior vena cava with normal inspiratory collapse. Pericardium:There is no pericardial effusion. CONCLUSIONS 1. Normal 2D Doppler Echocardiographic study: - normal chamber sizes and biventricular functio n - no valuvlar heart disease - normal pulm artery pressure estimate Electronically Signed By: Josesito Thompson MD-- Electronically Signed On: 11:09:03
--- NOTE | 2016-09-12 11:21 | PCM.STRESS ---
TREADMILL MYOCARDIAL PERFUSION STRESS TEST DATE OF PROCEDURE: [facility] 09/12/16 INDICATION: Chest pain and bradycardia-NH ruled out RESTING DATA: HR 45 B/P 140/90 Chest clear Cor: Regular rhythm, 1/6 DIEGO RESTING EKG: Sinus bradycardia at 45 per minute. Otherwise normal tracing PROTOCOL: Approx 8 mCi of technetium-99m pyrophosphate (Cardiolyte) was injected intravenously and tomograhic imaging performed at rest. An hour later, the patient performed treadmilll exericse on a Jcarlos protocol to a level of 8.8 METS, normal HR increase to 141/min, 92 percent of predicted maximum. BP tayla normally to 172/80. At peak exercise, an additional 25 mCi of Cardiolyte was injected and tomographic imaging repeated. Test stopped because of target heart rate achieved.. No chest pain. STRESS EKG: Rhythm: Normal sinus to sinus tachycardia. ST-T changes: None MYOCARDIAL PERFUSION IMAGING: Rotational display of raw projection data documents [stable pt position during imaging]. [There is a high right hemidiaphragm and prominent hepatic uptake]. There is homogeneous radiotracer uptake throughout on both rest and stress images. Gated imaging discloses normal wall thickening throughout within normal end systolic volume of 17 mL and an ejection fraction of 75%. IMPRESSION: (1) Functional capacity is very good. 8.8 METS (2) Normal HR and BP response to exercise (3) Normal resting left ventricular size and function, with end-systolic volume of 17 ml and ejection fraction of 75 %. (4) [No clinical or scintigraphic evidence of ischemia at target HR] Negative Treadmill perfusion stress test for ischemia.
[2016-09-12 11:26] VITALS: BP 113/66; TEMP 98
[2016-09-12 14:16] VITALS: PULSE 57
--- NOTE | 2016-09-12 14:24 | PCM.DCS92 ---
- Final/Secondary Discharge Diagnosis (1) Bradycardia Acute R00.1 - BRADYCARDIA, UNSPECIFIED Present on Admission: Yes Comment: EKG from urgent care showed heart rate of 47. Heart rate in emergency department in the 45-55 range. No history of bradycardia. Plan: Echocardiogram. Telemetry. (2) Chest pain Acute R07.9 - CHEST PAIN, UNSPECIFIED Present on Admission: Yes unspecified R07.9 - Chest pain, unspecified Comment: Rule out myocardial infarction. Plan: Obtain cardiac enzymes x 3. Place patient on telemetry. Give patient oxygen, aspirin. Give nitroglycerin, and morphine as needed for chest pain. Give statin. Stress test has been ordered for the morning. Patient has been advised, if the stress test is negative, to follow up with the primary care provider for evaluation of other potential causes of the chest pain. No beta angelina due to bradycardia. (3) Elevated blood pressure reading Acute R03.0 - ELEVATED BLOOD-PRESSURE READING, W/O DIAGNOSIS OF HTN Present on Admission: Yes Comment: Will give patient lisinopril while ruling out CT. Recheck blood pressures at primary care office. (4) Hypoxemia Acute R09.02 - HYPOXEMIA Present on Admission: Yes Comment: Plan: O2 by [place] prn. Discharge Disposition: Home Discharge Condition: Improved Cognitive Discharge Status: Unimpaired Fuctional Discharge Status: Independent Physician Follow up/Referrals: Wanda Everett MD [Primary Care Provider] - One Week (hospital will call with appointment ) Home Medications / New Prescriptions: Continue Guaifenesin [Mucinex] 600 mg PO BID Dorzolamide HCl [Trusopt] 1 drop OS QHS Brimonidine 0.2%/Timolol 0.5% [Combigan] 1 drops OU BID Valacyclovir HCl [Valtrex] 500 mg PO DAILY PRN PRN Reason: FEVER BLISTER Bimatoprost [Lumigan] 1 drop OU QHS Lansoprazole [Prevacid] 30 mg PO BID #60 tab.rap. Discharge Home Medication List Bimatoprost [Lumigan] 1 drop OU QHS 09/11/16 [History Confirmed 09/11/16 Last Taken 09/10/16] Brimonidine 0.2%/Timolol 0.5% [Combigan] 1 drops OU BID 09/11/16 [History Confirmed 09/11/16 Last Taken 09/11/16] Dorzolamide HCl [Trusopt] 1 drop OS QHS 09/11/16 [History Confirmed 09/11/16 Last Taken 09/10/16] Guaifenesin [Mucinex] 600 mg PO BID 09/11/16 [History Confirmed 09/11/16 Last Taken 09/11/16] Valacyclovir HCl [Valtrex] 500 mg PO DAILY PRN 09/11/16 [History Confirmed 09/11 Last Taken Unknown] Lansoprazole [Prevacid] 30 mg PO BID #60 tab.rap. 09/12/16 [Rx Last Taken Unknown] 09/12/16 02:06 09/12/16 02:06 Laboratory Results - last 24 hr 09/11/16 09/11/16 09/11/16 19:01 19:01 19:01 WBC 7.8 RBC 4.95 Hgb 13.2 Hct 40.4 MCV 82 MCH 26.7 L MCHC 32.7 L RDW 13.4 Plt Count 206 MPV 10.3 Neut % (Auto) 55.9 Lymph % (Auto) 30.1 [place] % (Auto) 8.1 Eos % (Auto) 4.7 Baso % (Auto) 1.2 Absolute Neuts (auto) 4.29 Absolute Lymphs (auto) 2.34 PT 10.7 INR 1.0 APTT 22.9 D-Dimer Quant (PE/DVT) Puncture Site pH pCO2 pO2 HCO3 Total CO2 Base Excess FiO2 % Specimen Drawn By Sodium 142 Potassium 3.8 Chloride 105 Carbon Dioxide 29 Anion Gap 12 BUN 24 H Creatinine 1.00 Estimated GFR (MDRD) 55 L Glucose 93 Calculated Osmolality 277 Calcium 9.7 Total Bilirubin 0.5 AST 33 ALT 23 Alkaline Phosphatase 113 Troponin I < 0.01 [id number] Pept 59 Total Protein 8.1 Albumin 4.3 Triglycerides Cholesterol LDL Cholesterol, Calc VLDL Cholesterol, Calc HDL Cholesterol Cholesterol/HDL Ratio 09/11/16 09/11/16 09/11/16 19:01 19:05 22:43 WBC RBC Hgb Hct MCV MCH MCHC RDW Plt Count MPV Neut % (Auto) Lymph % (Auto) [place] % (Auto) Eos % (Auto) Baso % (Auto) Absolute Neuts (auto) Absolute Lymphs (auto) PT INR APTT D-Dimer Quant (PE/DVT) 549 H Puncture Site Right brachial pH 7.440 pCO2 39.0 pO2 65.0 L HCO3 26.5 H Total CO2 27.7 H Base Excess 2.3 H FiO2 % 21 Specimen Drawn By Kaytr Sodium Potassium Chloride Carbon Dioxide Anion Gap BUN Creatinine Estimated GFR (MDRD) Glucose Calculated Osmolality Calcium Total Bilirubin AST ALT Alkaline Phosphatase Troponin I < 0.01 [id number] Pept Total Protein Albumin Triglycerides Cholesterol LDL Cholesterol, Calc VLDL Cholesterol, Calc HDL Cholesterol Cholesterol/HDL Ratio 09/12/16 09/12/16 09/12/16 02:06 02:06 02:06 WBC 6.6 RBC 4.39 Hgb 11.8 L D Hct 36.1 MCV 82 MCH 26.9 L MCHC 32.7 L RDW 13.3 Plt Count 176 MPV 10.3 Neut % (Auto) Lymph % (Auto) [place] % (Auto) Eos % (Auto) Baso % (Auto) Absolute Neuts (auto) Absolute Lymphs (auto) PT INR APTT D-Dimer Quant (PE/DVT) Puncture Site pH pCO2 pO2 HCO3 Total CO2 Base Excess FiO2 % Specimen Drawn By Sodium 140 Potassium 3.8 Chloride 106 Carbon Dioxide 27 Anion Gap 11 BUN 19 H Creatinine 0.90 Estimated GFR (MDRD) > 60 Glucose 99 Calculated Osmolality 271 Calcium 8.9 Total Bilirubin AST ALT Alkaline Phosphatase Troponin I < 0.01 [id number]-Nvximczmkso Pept Total Protein Albumin Triglycerides Cholesterol LDL Cholesterol, Calc VLDL Cholesterol, Calc HDL Cholesterol Cholesterol/HDL Ratio 09/12/16 02:06 WBC RBC Hgb Hct MCV MCH MCHC RDW Plt Count MPV Neut % (Auto) Lymph % (Auto) [place] % (Auto) Eos % (Auto) Baso % (Auto) Absolute Neuts (auto) Absolute Lymphs (auto) PT INR APTT D-Dimer Quant (PE/DVT) Puncture Site pH pCO2 pO2 HCO3 Total CO2 Base Excess FiO2 % Specimen Drawn By Sodium Potassium Chloride Carbon Dioxide Anion Gap BUN Creatinine Estimated GFR (MDRD) Glucose Calculated Osmolality Calcium Total Bilirubin AST ALT Alkaline Phosphatase Troponin I [id number] Pept Total Protein Albumin Triglycerides 154 H Cholesterol 190 LDL Cholesterol, Calc 118.2 H VLDL Cholesterol, Calc 30.8 HDL Cholesterol 41.0 Cholesterol/HDL Ratio 4.6 O2 Device: Room Air Diet at Discharge: As Tolerated, Cardiac, Heart Healthy, Low Salt Activity: No Restrictions, As Tolerated Call Office For: Worsening Symptoms, Fever over 101 F, Pain Uncontrolled By Meds Discontinue use of:: Alcohol, All Illegal Substances, All Types of Tobacco - DC Summary Notes HPI/Notes: HPI: The patient is a 66 yo woman who presents with not feeling well and having chest pain. . She has had a cold and coughing and drainage over the last 2 weeks. She had chest pain intermittently over the last 2 weeks, but started to get worse yesterday. She went to urgent care and had an EKG done, that showed a heart rate of 47; she had several other measurements in the 40s, including 44 and 49 bpm. Onset: 2 weeks ago but worse starting yesterday. Duration: intermittent. Location: Substernal. Left chest. Radiation: Sometimes to right chest and axillae. Character: 9/10 at times. Pressure and burning. Alleviated by: Nothing. Exacerbated by: Walking and especially with going uphill. Associated Symptoms: Cough x years but worse than usual. Mild shortness of breath. No wheezing. Chest pain but no palpitations. Diaphoresis. Treatments: none at home except usual medications. Her had a cold. Had bronchitis in June - July 2016. Patient requests that if she needs to see a sales audit clerk, she requests Dr. Hinton, who is her 's doctor. PMH: Glaucoma Chronic cough thought due to allergic rhinitis. GERD No history of hypertension, hyperlipidemia, diabetes. Minimal smoking history, and has quit. Family History: MGF with CT. Hospital Course Note:: Discharge summary on patient named HANNY CARDENAS admitted to [facility] on 09/11/16 by Kiel Rangel MD. Date of discharge is 09/12/2016. She is admitted PCU last night and had a negative nuclear stress test today. Possible etiology for her chest pain is GI related and recommend that she get gallbladder ultrasound and possibly a nuclear scan of it if the ultrasound is negative. She may also want to see an public health administrator about her cough. Cc: Dr. Everett Total Time: 37 min Code: 96308 Wound Care Surgical Site: No - Physical Exam Vital Signs: Last Vital Signs Temp 98.0 F 09/12/16 11:26 Pulse 57 L 09/12/16 14:00 Resp 18 09/12/16 11:26 BP 113/66 09/12/16 11:26 Pulse Ox 96 09/12/16 11:30 Oxygen Pulse Oxygen Saturation O2 Device Oxygen Flow Rate Fraction of Inspired Oxygen ( FIO2) Constitutional: Alert Oriented to: Time, Person, Place - HEENT Head: Normal ( normocephalic) Eye: Normal (PERRL, EOMI, Sclera white) Oropharynx: Normal (Pharynx:Moist without exudate,Gums-no swelling) ENT EAC: Normal (No oropharyngeal lesions or erythema. Mucous membranes are dry. ) TMJ: Normal Nose: No Symptoms Reported (septum midline) - Respiratory/Cardiovascular Respiratory: Normal - CTA Cardiovascular: Normal - GI Auscultation: Normal (NABS) Palpation: Normal (Soft,No rebound or guarding, non distended) Tenderness: Non tender Cooper's Sign: Negative Rectal Exam: Deferred - Musculoskeletal Back: Normal (Non-Tender) Extremities: Normal (Normal tone, Pulses 2+ No cyanosis or edema, FROM) - Integumentary Skin: Normal, Warm, Dry Lymphatics: Normal (no adenopathy) - Neurologic Memory Impaired: Normal Cerebellar: Normal Mood Description: Normal Thought: Coherent Perception: Normal
[2016-09-12] MEDS ORDERED: ENOXAPARIN 40 MG/0.4 ML PFS SQ SCH (18:00)
--- NOTE | 2016-09-13 13:27 | CAPUEKG ---
[place], [place] Test Date: 2016-09-12 Pat Name: HANNY CARDENAS Department: Room: 450 Gender: Female Senior Talent Acquisition Specialist: : Requested By: Order Number: Reading MD: Josesito Thompson Measurements Intervals [place] Rate: 55 P: 31 TX: 170 QRS: 55 QRSD: 80 T: 57 QT: 432 QTc: 413 Interpretive Statements Sinus bradycardia Otherwise normal tracing Abnormal ECG Electronically Signed On 09-13-16 13:26:45 EST by Josesito Thompson <[id number] [id number]
== END 2016-09-12 15:06 | disposition home or self-care (01) | DRG 313 ==
LOC: ED 18:25 → PCU 23:54 → OBSVTOIN 09-12 12:44
PROVIDERS: ADMIT Internal Medicine; ATTEND Internal Medicine
PROC: 03973ZZ Drainage of Right Brachial Artery, Percutaneous Approach (ICD-10-PCS; principal; 2016-09-12)
DX: R07.9 Chest pain, unspecified (principal); R00.1 Bradycardia, unspecified; K21.9 Gastro-esophageal reflux disease without esophagitis; R03.0 Elevated blood-pressure reading, without diagnosis of hypertension; R09.02 Hypoxemia; Z88.1 Allergy status to other antibiotic agents; Z88.2 Allergy status to sulfonamides; Z79.899 Other long term (current) drug therapy
CPT/HCPCS: 36415; 36600; 71010; 71275; 78452; 80048; 80053; 80061; 82803; 83880; 84484; 85025; 85027; 85379; 85610; 85730; 93005; 93017; 93306; 96360; 96361; 96372; 99284; A4216; A9500; A9698; G0378; J1650; J2785; J3490